=== PATIENT | female | born 1965 | race Caucasian/White ===

== ENCOUNTER 2024-02-28 11:33 | Emergency (ER) | payer MEDICARE ==
[~2024-02-28] VITALS: Ht 165.1 cm; Wt 67.7 kg
[2024-02-28 11:41] VITALS: TEMP 98.6
[2024-02-28 13:19] VITALS: BP 109/80; PULSE 102
== END 2024-02-28 13:19 | disposition home or self-care (01) ==
LOC: COL.ER 11:33
DX: M25.511 Pain in right shoulder (principal); F17.210 Nicotine dependence, cigarettes, uncomplicated